=== PATIENT | female | born 1965 | race Caucasian/White ===

== ENCOUNTER 2017-02-22 12:19 | Emergency (ER) | payer BC, OTHER ==
[~2017-02-22] VITALS: Ht 162.6 cm; Wt 49.9 kg
[2017-02-22] MEDS ORDERED: METH-33 PO (12:38)
[2017-02-22] MEDS ORDERED: TRAZ-144 PO (12:38)
[2017-02-22] MEDS ORDERED: GABA-534 PO (12:38)
[2017-02-22] MEDS ORDERED: CLOM50TA PO (12:38)
[2017-02-22] MEDS ORDERED: HYDR25CA PO (12:38)
[2017-02-22] MEDS ORDERED: CLON0.1T PO (12:38)
[2017-02-22] MEDS ORDERED: PRAZ2CAP2 PO (12:38)
[2017-02-22] MEDS ORDERED: PROC-11 PO (12:38)
[2017-02-22] MEDS ORDERED: BUSP10TA3 PO (12:38)
[2017-02-22] MEDS ORDERED: ARIP2TAB3 PO (12:38)
[2017-02-22] MEDS ORDERED: SUMA100T16 PO (12:38)
[2017-02-22] MEDS ORDERED: ZALE10CA28 PO (12:38)
[2017-02-22] MEDS ORDERED: CETI10CA PO (12:38)
[2017-02-22] MEDS ORDERED: NORE-76 PO (12:39)
--- NOTE | 2017-02-22 13:00 | NUR ---
hospital sandwich and juice provided per pt request.
[2017-02-22 13:03] LABS: *BILIRUBIN,URIN NEGATIVE (NEGATIVE); *BLOOD, URINE 1+ (NEGATIVE); *CLARITY,URINE CLEAR (CLEAR); *COLOR,URINE YELLOW (YELLOW); *KETONES,URINE NEGATIVE (NEGATIVE); *PROTEIN,URINE 1+ (NEGATIVE); *UROBILINOGEN,URINE 0.2 E.U./dl (NORMAL); LEUKOCYTE ESTERASE ,URINE NEGATIVE (NEGATIVE); NITRITE, URINE NEGATIVE (NEGATIVE); PH,URINE 5.5 (5.0-8.0); UGLUCOSE NEGATIVE (NEGATIVE)
[2017-02-22 13:06] LABS: *URINE HCG, QUAL NEGATIVE (NEGATIVE)
[2017-02-22 13:08] LABS: BASOPHILS % (AUTO) 0.3 % (0.0-2.0); EOSINOPHILS # (AUTO) 0.1 K/uL (0.0-0.7); EOSINOPHILS % (AUTO) 0.6 % (0.0-7.0); HEMATOCRIT 37.2 % (37-47); LYMPHOCYTES # (AUTO) 2.4 K/UL (0.8-4.8); LYMPHOCYTES % (AUTO) 26.4 % (20.5-51.5); MEAN CORPUSCULAR HGB CONC 32 g/dL (32.0-37.0); MEAN CORPUSCULAR VOLUME 86.5 FL (81.0-99.0); MONOCYTES # (AUTO) 0.7 K/UL (0.1-1.30); NEUTROPHILS # (AUTO) 5.9 K/UL (1.8-8.9); NEUTROPHILS % (AUTO) 64.7 % (38.5-71.5); PLATELET COUNT (AUTO) 301 K/UL (150-450); WHITE BLOOD COUNT (AUTO) 9.1 K/UL (4.0-11.2)
[2017-02-22 13:13] LABS: *AMPHETAMINE, URINE NEGATIVE (NEGATIVE); *BARBITURATE, URINE POSITIVE (NEGATIVE); *CANNABINOID, URINE POSITIVE (NEGATIVE); *COCCAINE, URINE NEGATIVE (NEGATIVE); *OPIATE, URINE NEGATIVE (NEGATIVE); *PHENCYCLIDINE SCREEN,URINE NEGATIVE (NEGATIVE)
[2017-02-22 13:16] LABS: CARBON DIOXIDE 28 mmol/L (21-32); CHLORIDE 103 mmol/L (98-107); CREATININE 0.8 mg/dL (0.6-1.3); GLUCOSE 101 mg/dL (74-106); POTASSIUM 3.4 mmol/L (3.5-5.1); UREA NITROGEN, BLOOD 8 mg/dL (7-18)
[2017-02-22 13:16] LABS: BACTERIA,URINE FEW /HPF (NONE SEEN); MUCUS,URINE MODERATE /LPF (0-FEW); SQUAMOUS EPITHELIAL CELL,UR FEW /HPF (NONE SEEN); WBC,URINE 0-3 /HPF (0-3)
[2017-02-22 13:21] LABS: ALANINE AMINOTRANSFERASE 16 U/L (14-59); ALKALINE PHOSPHATASE 54 U/L (50-136); ASPARTATE AMINOTRANSFERASE 10 U/L (15-37); BILIRUBIN,DIRECT < 0.1 mg/dL (0.0-0.2); BILIRUBIN,TOTAL 0.2 mg/dL (0.2-1.0); ETHANOL < 3 MG/DL (0-0); TOTAL PROTEIN, SERUM 7.3 g/dL (6.4-8.2)
[2017-02-22 13:22] LABS: ACETAMINOPHEN < 2.0 ug/mL (10-30)
--- NOTE | 2017-02-22 13:35 | NUR ---
Patient discharged to home in stable conditon. Written and verbal after care instructions given. Patient verbalizes understanding of instructions.pt walks in steady gait. pt with famiyl member. walked the pt to [facility] office.
[2017-02-22 13:36] VITALS: BP 109/65
== END 2017-02-22 13:38 | disposition home or self-care (01) ==
LOC: ER 12:19
DX: F13.20 Sedative, hypnotic or anxiolytic dependence, uncomplicated (principal); G43.909 Migraine, unspecified, not intractable, without status migrainosus; Z88.8 Allergy status to other drugs, medicaments and biological substances; Z91.018 Allergy to other foods
CPT/HCPCS: 36415; 80048; 80076; 80307; 81001; 84703; 85025; 99284; A4663; G0480 ×2; G0481

== ENCOUNTER 2021-05-05 19:03 | Emergency (ER) | payer BC, OTHER ==
[~2021-05-05] VITALS: Ht 162.6 cm; Wt 62.1 kg
[~2021-05-05 19:03] MED LIST: ARIP2TAB3 PO; BUSP10TA3 PO; CETI10CA PO; CLOM50TA PO; CLON0.1T PO; GABA-534 PO; HYDR25CA PO; METH-33 PO; NORE-76 PO; PRAZ2CAP2 PO; PROC-11 PO; SUMA100T16 PO; TRAZ-182 PO; ZALE10CA28 PO
--- NOTE | 2021-05-05 19:09 | NUR ---
NO BEDS AVAILABLE IN THE ER. PLACED PATIENT BACK IN THE WAITING ROOM.
--- NOTE | 2021-05-05 19:50 | NUR ---
PATIENT PLACED IN ROOM 5A. DR CROCKETT INTO EVAL PATIENT.
[2021-05-05] MEDS ORDERED: CLON2TAB11 PO (19:59)
[2021-05-05] MEDS ORDERED: OLANZAPINE 10 MG VIAL IM ONE ×2 (20:00→20:08)
[2021-05-05] MEDS ORDERED: CLONAZEPAM 0.5 MG TABLET PO ONE (20:00)
[2021-05-05] MEDS ORDERED: CLONAZEPAM 1 MG TABLET ONE (20:07)
--- NOTE | 2021-05-05 20:08 | NUR ---
Patient discharged to home in stable condition. Stedy gait. Written and verbal after care instructions given. Patient verbalizes understanding of instructions. Stressed follow up or return to ER for worsening s/s. No SOB or labored breathing, A/O x4, picked up by .
[2021-05-05 20:16] VITALS: BP 116/72
== END 2021-05-05 20:11 | disposition home or self-care (01) ==
LOC: ER 19:03
DX: F41.9 Anxiety disorder, unspecified (principal); Z79.899 Other long term (current) drug therapy; Z88.1 Allergy status to other antibiotic agents; Z91.018 Allergy to other foods
CPT/HCPCS: A4663; J2358

== ENCOUNTER 2021-05-11 13:01 | Emergency (ER) | payer OTHER ==
[~2021-05-11] VITALS: Ht 162.6 cm; Wt 62.6 kg
[~2021-05-11 13:01] MED LIST changes: +CLON2TAB11 PO
[2021-05-11] MEDS ORDERED: LORAZEPAM 0.5 MG TABLET PO ONE (13:30)
[2021-05-11] MEDS ORDERED: HYDR-501 PO (13:31)
[2021-05-11] MEDS ORDERED: LORAZEPAM 1 MG TABLET ONE (13:50)
--- NOTE | 2021-05-11 13:58 | NUR ---
Gave pt RX and d/c instructions, pt verbalized understanding.
== END 2021-05-11 14:04 | disposition home or self-care (01) ==
LOC: ER 13:01
DX: F41.0 Panic disorder [episodic paroxysmal anxiety] (principal); F41.9 Anxiety disorder, unspecified; Z88.1 Allergy status to other antibiotic agents; Z91.018 Allergy to other foods
CPT/HCPCS: A4663

== ENCOUNTER 2021-05-11 19:55 | Emergency (ER) | payer OTHER ==
[~2021-05-11 19:55] MED LIST changes: +HYDR-501 PO
--- NOTE | 2021-05-11 21:00 | NUR ---
PATIENT WAS CALLED TO BE TRAIGED BUT WAS NOT PRESENT IN THE WAITING ROOM OR OUTSIDE OF ER.
--- NOTE | 2021-05-11 21:30 | NUR ---
PATIENT WAS CALLED TO BE TRAIGED BUT WAS NOT PRESENT IN THE WAITING ROOM OR OUTSIDE OF ER.
--- NOTE | 2021-05-11 22:00 | NUR ---
PATIENTG WAS CALLED TO BE TRIAGED BUT WAS NOT PRERSENT. PATIENT WAS NOT TRAIGED OR SEEN BY ERMD
== END 2021-05-11 22:00 | disposition left against medical advice (07) ==
LOC: ER 19:57
DX: Z53.21 Procedure and treatment not carried out due to patient leaving prior to being seen by health care provider (principal)

== ENCOUNTER 2021-10-28 10:10 | Emergency (ER) | payer OTHER ==
[~2021-10-28] VITALS: Ht 162.6 cm; Wt 63.5 kg
[2021-10-28] MEDS ORDERED: KETOROLAC TROMETHAMINE 15 MG INJ IVP ONE (10:30)
[2021-10-28] MEDS ORDERED: diphenhydrAMINE 50 MG/1 ML VIAL IV ONE (10:30)
[2021-10-28] MEDS ORDERED: IV NORMAL SALINE 1000 ML BAG IV ONE (10:30)
[2021-10-28] MEDS ORDERED: METOCLOPRAMIDE HCL 10 MG/2 ML VIAL IV ONE (10:30)
[2021-10-28] MEDS ORDERED: diphenhydrAMINE 50 MG/1 ML VIAL ONE (10:47)
[2021-10-28] MEDS ORDERED: METOCLOPRAMIDE HCL 10 MG/2 ML VIAL ONE (10:48)
[2021-10-28] MEDS ORDERED: KETOROLAC TROMETHAMINE 15 MG INJ ONE (10:49)
[2021-10-28] MEDS ORDERED: LORAZEPAM 2 MG/1 ML VIAL IV ONE (11:00)
[2021-10-28 11:05] LABS: HEMATOCRIT 39.1 % (31.2-41.9); MEAN CORPUSCULAR HEMOGLOBIN 27.4 uug (24.7-32.8); MEAN CORPUSCULAR VOLUME 83.1 fL (75.5-95.3); PLATELET COUNT (AUTO) 337 K/uL (179-408)
[2021-10-28 11:07] LABS: CREATININE 0.9 mg/dL (0.6-1.3); POTASSIUM 3.9 mmol/L (3.5-5.1)
[2021-10-28] MEDS ORDERED: LORAZEPAM 2 MG/1 ML VIAL ONE (11:07)
[2021-10-28] MEDS ORDERED: BUTA1CAP46 PO (12:31)
--- NOTE | 2021-10-28 12:42 | NUR ---
IV removed. Catheter intact and site benign. Pressure and 4x4 gauze applied to site. No bleeding noted.
[2021-10-28 12:44] VITALS: BP 112/70
--- NOTE | 2021-10-28 12:45 | NUR ---
Patient discharged to home in stable condition. Written and verbal after care instructions given. Patient verbalizes understanding of instructions. Stressed follow up or return to ER for worsening s/s.
== END 2021-10-28 12:45 | disposition home or self-care (01) ==
LOC: ER 10:10
DX: G43.909 Migraine, unspecified, not intractable, without status migrainosus (principal); F41.9 Anxiety disorder, unspecified; Z79.899 Other long term (current) drug therapy; R94.31 Abnormal electrocardiogram [ECG] [EKG]
CPT/HCPCS: 36415; 80048; 85025; 93005; 96361; 96374; 96375; 99284; J1200; J1885; J2060; J2765; J7040; A4663

== ENCOUNTER 2021-11-19 11:20 | Emergency (ER) | payer OTHER ==
[~2021-11-19] VITALS: Ht 162.6 cm; Wt 63.0 kg
[~2021-11-19 11:20] MED LIST changes: +BUTA1CAP46 PO
[2021-11-19] MEDS ORDERED: LORAZEPAM 2 MG/1 ML VIAL ONE (11:56)
[2021-11-19] MEDS ORDERED: LORAZEPAM 2 MG/1 ML VIAL IM ONE (12:00)
[2021-11-19] MEDS ORDERED: ONDANSETRON ODT 4 MG TAB.RAPDIS SL ONE (12:30)
[2021-11-19] MEDS ORDERED: LORAZEPAM 0.5 MG TABLET PO ONE (12:30)
[2021-11-19] MEDS ORDERED: ONDANSETRON ODT 4 MG TAB.RAPDIS ONE (12:42)
[2021-11-19] MEDS ORDERED: LORAZEPAM 1 MG TABLET ONE (12:42)
--- NOTE | 2021-11-19 13:00 | NUR ---
pt says feels better and is ready to go home.
[2021-11-19] MEDS ORDERED: ONDA8TAB13 PO (13:12)
--- NOTE | 2021-11-19 13:12 | NUR ---
Patient discharged to home in stable condition. Written and verbal after care instructions given. Patient verbalizes understanding of instructions. Stressed follow up or return to ER for worsening s/s.pt walks in steady gait. pt not driving.
[2021-11-19 14:02] VITALS: BP 126/68
== END 2021-11-19 14:03 | disposition home or self-care (01) ==
LOC: ER 11:21
DX: F41.9 Anxiety disorder, unspecified (principal); Z88.1 Allergy status to other antibiotic agents; Z91.018 Allergy to other foods; Z86.69 Personal history of other diseases of the nervous system and sense organs
CPT/HCPCS: 96372; 99283; J2060; A4663; Q0162

== ENCOUNTER 2021-12-03 11:55 | Emergency (ER) | payer OTHER ==
[~2021-12-03] VITALS: Ht 162.6 cm; Wt 62.6 kg
[~2021-12-03 11:55] MED LIST changes: +ONDA8TAB13 PO
[2021-12-03] MEDS ORDERED: LORAZEPAM 2 MG/1 ML VIAL ONE (12:13)
[2021-12-03] MEDS ORDERED: LORAZEPAM 2 MG/1 ML VIAL IV ONE (12:15)
[2021-12-03] MEDS ORDERED: LORAZEPAM 2 MG/1 ML VIAL IM ONE (12:15)
--- NOTE | 2021-12-03 12:20 | NUR ---
MD gave verbal order to administer Ativan IM, charted it against IV administration order, so IM order not charted against.
--- NOTE | 2021-12-03 13:10 | NUR ---
pt states she is feeling much better now.
--- NOTE | 2021-12-03 13:45 | NUR ---
Pt left prior to receiving d/c paperwork, will try to stop back for papers.
[2021-12-03] MEDS ORDERED: LORA2ORA5 PO (14:13)
[2021-12-03 15:11] VITALS: BP 132/78
[2021-12-03] MEDS ORDERED: MIDAZOLAM HCL 2 MG/2 ML VIAL IM ONE (15:15)
[2021-12-03] MEDS ORDERED: OLANZAPINE 10 MG VIAL IM ONE (15:15)
== END 2021-12-03 14:45 | disposition home or self-care (01) ==
LOC: ER 12:00
DX: F41.9 Anxiety disorder, unspecified (principal); F41.0 Panic disorder [episodic paroxysmal anxiety]
CPT/HCPCS: 96374; 99284; J2060; A4663

== ENCOUNTER 2021-12-21 18:20 | Emergency (ER) | payer OTHER ==
[~2021-12-21] VITALS: Ht 162.6 cm; Wt 62.6 kg
[~2021-12-21 18:20] MED LIST changes: +LORA2ORA5 PO
[2021-12-21] MEDS ORDERED: diphenhydrAMINE 50 MG/1 ML VIAL IV ONE (19:00)
[2021-12-21] MEDS ORDERED: KETOROLAC TROMETHAMINE 30 MG INJ IVP ONE (19:00)
[2021-12-21] MEDS ORDERED: METOCLOPRAMIDE HCL 10 MG/2 ML VIAL IV ONE (19:00)
[2021-12-21] MEDS ORDERED: IV NS 1000 ML 1,000 ML IV ONE (19:00)
[2021-12-21] MEDS ORDERED: diphenhydrAMINE 50 MG/1 ML VIAL ONE (19:07)
[2021-12-21] MEDS ORDERED: METOCLOPRAMIDE HCL 10 MG/2 ML VIAL ONE (19:07)
[2021-12-21] MEDS ORDERED: KETOROLAC TROMETHAMINE 30 MG INJ ONE (19:07)
--- NOTE | 2021-12-21 19:30 | NUR ---
Patient c/o anxiety and requesting for ativan. Dr Gamez informed
--- NOTE | 2021-12-21 19:30 | NUR ---
Patien's SO at bedside
--- NOTE | 2021-12-21 19:37 | NUR ---
patient is a/ox4, NAD noted. Patient is is able to walk to the restroom with steady gait
[2021-12-21] MEDS ORDERED: CODE1CAP24 GT (20:46)
[2021-12-21] MEDS ORDERED: LORA2TAB95 PO (20:46)
--- NOTE | 2021-12-21 20:51 | NUR ---
Patient discharged to home in stable condition. Written and verbal after care instructions given. Patient verbalizes understanding of instructions. Stressed follow up or return to ER for worsening s/s. Patient is a/ox4, NAD. Patient is able to walk with steady gait. Patient is accompanied by SO
[2021-12-21 21:20] VITALS: BP 125/78
== END 2021-12-21 20:51 | disposition home or self-care (01) ==
LOC: ER 18:22
DX: R51.9 Headache, unspecified (principal); F41.9 Anxiety disorder, unspecified; Z76.0 Encounter for issue of repeat prescription
CPT/HCPCS: 96361; 96374; 96375; 99284; J1200; J1885; J2765; J7040; A4663

== ENCOUNTER 2022-01-14 20:45 | Emergency (ER) | payer SELFPAY ==
[~2022-01-14 20:45] MED LIST changes: +CODE1CAP24 GT; +LORA2TAB95 PO
== END 2022-01-14 21:52 | disposition left against medical advice (07) ==
LOC: ER 20:45
DX: Z53.21 Procedure and treatment not carried out due to patient leaving prior to being seen by health care provider (principal)

== ENCOUNTER 2022-01-17 14:50 | Emergency (ER) | payer OTHER ==
[~2022-01-17] VITALS: Ht 162.6 cm; Wt 62.6 kg
[2022-01-17] MEDS ORDERED: LORAZEPAM 1 MG TABLET ONE (15:45)
[2022-01-17] MEDS ORDERED: LORAZEPAM 0.5 MG TABLET PO ONE ×2 (15:45)
[2022-01-17] MEDS ORDERED: LORA2TAB95 PO (16:23)
== END 2022-01-17 17:26 | disposition home or self-care (01) ==
LOC: ER 14:50
DX: F41.9 Anxiety disorder, unspecified (principal)
CPT/HCPCS: A4663

== ENCOUNTER 2022-01-26 11:27 | Emergency (ER) | payer OTHER ==
[~2022-01-26] VITALS: Ht 162.6 cm; Wt 61.7 kg
[2022-01-26] MEDS ORDERED: SERT100T PO (12:02)
[2022-01-26] MEDS ORDERED: OLAN20TA3 PO (12:02)
[2022-01-26] MEDS ORDERED: LORA2TAB95 PO (12:02)
[2022-01-26] MEDS ORDERED: LORAZEPAM 0.5 MG TABLET PO ONE (12:30)
[2022-01-26] MEDS ORDERED: LORAZEPAM 1 MG TABLET ONE (12:36)
--- NOTE | 2022-01-26 12:43 | NUR ---
Gave pt d/c instructions, pt verbalized understanding.
== END 2022-01-26 12:45 | disposition home or self-care (01) ==
LOC: ER 11:27
DX: F41.9 Anxiety disorder, unspecified (principal); F17.290 Nicotine dependence, other tobacco product, uncomplicated; Z88.1 Allergy status to other antibiotic agents; Z91.018 Allergy to other foods; Z91.048 Other nonmedicinal substance allergy status
CPT/HCPCS: A4663

== ENCOUNTER 2022-01-30 14:57 | Emergency (ER) | payer OTHER ==
[~2022-01-30] VITALS: Ht 162.6 cm; Wt 61.7 kg
[~2022-01-30 14:57] MED LIST changes: +OLAN20TA3 PO; +SERT100T PO
--- NOTE | 2022-01-30 15:00 | NUR ---
Patient seen by
[2022-01-30] MEDS ORDERED: LORAZEPAM 0.5 MG TABLET PO ONE (16:00)
[2022-01-30] MEDS ORDERED: LORAZEPAM 1 MG TABLET ONE (16:24)
[2022-01-30] MEDS ORDERED: ONDANSETRON ODT 4 MG TAB.RAPDIS SL ONE (17:30)
[2022-01-30] MEDS ORDERED: ONDANSETRON ODT 4 MG TAB.RAPDIS ONE (17:30)
[2022-01-30] MEDS ORDERED: ONDA4TAB5 PO (17:49)
[2022-01-30] MEDS ORDERED: CLON1TAB12 PO (17:50)
--- NOTE | 2022-01-30 17:58 | NUR ---
DCD instructions given to pt. who verbalized undertanding. Patient left room ambulatory AAOX4. vitals stable anxiety better controlledd.
== END 2022-01-30 18:00 | disposition home or self-care (01) ==
LOC: ER 14:58
DX: F41.9 Anxiety disorder, unspecified (principal); Z76.0 Encounter for issue of repeat prescription; I95.9 Hypotension, unspecified
CPT/HCPCS: 71045; 93005; A4663; Q0162

== ENCOUNTER 2022-03-03 15:56 | Emergency (ER) | payer OTHER ==
[~2022-03-03] VITALS: Ht 162.6 cm; Wt 61.7 kg
[~2022-03-03 15:56] MED LIST changes: +CLON1TAB12 PO; +ONDA4TAB5 PO
[2022-03-03] MEDS ORDERED: KETOROLAC TROMETHAMINE 30 MG INJ ONE (16:09)
[2022-03-03] MEDS ORDERED: KETOROLAC TROMETHAMINE 30 MG INJ IM ONE (16:15)
[2022-03-03] MEDS ORDERED: CODE1CAP24 PO (16:16)
--- NOTE | 2022-03-03 16:49 | NUR ---
PT SEEN AND EVALUATED BY DR REZA. MEDICATED PER MD ORDER.
--- NOTE | 2022-03-03 18:09 | NUR ---
PT FEELING BETTER AT THIS TIME. DISCHARGED IN STABLE CONDITION.
[2022-03-03 18:11] VITALS: BP 104/68
== END 2022-03-03 18:11 | disposition home or self-care (01) ==
LOC: ER 15:56
DX: G43.909 Migraine, unspecified, not intractable, without status migrainosus (principal); F41.9 Anxiety disorder, unspecified; F17.200 Nicotine dependence, unspecified, uncomplicated; Z76.0 Encounter for issue of repeat prescription; Z88.1 Allergy status to other antibiotic agents; Z91.018 Allergy to other foods; Z79.899 Other long term (current) drug therapy
CPT/HCPCS: 99283; 96372; J1885; A4663

== ENCOUNTER 2022-06-19 13:02 | Emergency (ER) | END 2022-06-19 14:14 | disposition home or self-care (01) | DX: G43.909 Migraine, unspecified, not intractable, without status migrainosus (principal); F41.9 Anxiety disorder, unspecified; Z76.0 Encounter for issue of repeat prescription; F17.290 Nicotine dependence, other tobacco product, uncomplicated; Z88.1 Allergy status to other antibiotic agents; Z91.018 Allergy to other foods | CPT/HCPCS: 99284; 96372 ×2; J1885; J2765 ==

== ENCOUNTER 2022-06-23 14:59 | Emergency (ER) | payer OTHER ==
[~2022-06-23] VITALS: Ht 162.6 cm; Wt 55.3 kg
[~2022-06-23 14:59] MED LIST changes: +CODE1CAP24 PO
--- NOTE | 2022-06-23 15:15 | NUR ---
Pt ambulatory to room 4A, pt states she has history of anxiety and takes Klonopin but ran out. States she has an appointment with her psychiatrist.
[2022-06-23] MEDS ORDERED: CLONAZEPAM 1 MG TABLET ONE (15:28)
[2022-06-23] MEDS ORDERED: CLONAZEPAM 0.5 MG TABLET PO ONE (15:30)
[2022-06-23] MEDS ORDERED: CLON2TAB11 PO ×2 (16:37→16:45)
--- NOTE | 2022-06-23 16:40 | NUR ---
Pt states feeling better and her panic attack decreased.
[2022-06-23 16:46] VITALS: BP 101/60
== END 2022-06-23 16:48 | disposition home or self-care (01) ==
LOC: ER 14:59
DX: F41.0 Panic disorder [episodic paroxysmal anxiety] (principal); F41.1 Generalized anxiety disorder; Z88.1 Allergy status to other antibiotic agents; Z91.018 Allergy to other foods; Z91.048 Other nonmedicinal substance allergy status
CPT/HCPCS: A4663

== ENCOUNTER 2022-06-28 15:44 | Emergency (ER) | payer SELFPAY | END 2022-06-28 16:17 | disposition left against medical advice (07) | LOC: ER 15:44 | DX: Z53.21 Procedure and treatment not carried out due to patient leaving prior to being seen by health care provider (principal) ==

== ENCOUNTER 2022-09-03 13:21 | Emergency (ER) | payer OTHER ==
[~2022-09-03] VITALS: Ht 162.6 cm; Wt 53.5 kg
--- NOTE | 2022-09-03 13:35 | NUR ---
PT IS IN ROOM #1A. DR QUINTERO EVALUATED THE PT.
[2022-09-03] MEDS ORDERED: LORAZEPAM 2 MG/1 ML VIAL ONE ×3 (13:44→15:07)
[2022-09-03] MEDS ORDERED: METOCLOPRAMIDE HCL 10 MG/2 ML VIAL ONE (13:45)
[2022-09-03] MEDS ORDERED: KETOROLAC TROMETHAMINE 30 MG INJ ONE (13:45)
[2022-09-03] MEDS ORDERED: METOCLOPRAMIDE HCL 10 MG/2 ML VIAL IV ONE (13:45)
[2022-09-03] MEDS ORDERED: IV NORMAL SALINE 1000 ML BAG IV ONE ×2 (13:45→14:45)
[2022-09-03] MEDS ORDERED: KETOROLAC TROMETHAMINE 30 MG INJ IVP ONE (13:45)
[2022-09-03] MEDS ORDERED: LORAZEPAM 2 MG/1 ML VIAL IV ONE ×3 (13:45→15:00)
[2022-09-03 13:58] LABS: HEMATOCRIT 42.8 % (31.2-41.9); MEAN CORPUSCULAR HEMOGLOBIN 27.4 uug (24.7-32.8); MEAN CORPUSCULAR VOLUME 85.3 fL (75.5-95.3); PLATELET COUNT (AUTO) 349 K/uL (179-408)
[2022-09-03 14:20] LABS: BILIRUBIN,DIRECT 0.1 mg/dL (0.0-0.2); BILIRUBIN,TOTAL 0.4 mg/dL (0.2-1.0); CREATININE 1.1 mg/dL (0.6-1.3); POTASSIUM 3.9 mmol/L (3.5-5.1); TOTAL PROTEIN, SERUM 8.4 g/dL (6.4-8.2)
[2022-09-03] MEDS ORDERED: BUTALB/ACETAMINOPHEN/CAFFEINE CAPSULE PO ONE (15:00)
[2022-09-03] MEDS ORDERED: BUTALB/ACETAMINOPHEN/CAFFEINE CAPSULE ONE (15:08)
[2022-09-03] MEDS ORDERED: CODE1CAP24 GT (16:11)
--- NOTE | 2022-09-03 16:41 | NUR ---
PT WAS D/C'd TO HOME. D/C INSTRUCTIONS GIVEN TO THE PT BY DR QUINTERO.
[2022-09-03 16:45] VITALS: BP 128/69
== END 2022-09-03 16:46 | disposition home or self-care (01) ==
LOC: ER 13:21
DX: R19.7 Diarrhea, unspecified (principal); R51.9 Headache, unspecified; F41.9 Anxiety disorder, unspecified; Z88.1 Allergy status to other antibiotic agents; Z91.018 Allergy to other foods; Z91.048 Other nonmedicinal substance allergy status; F17.290 Nicotine dependence, other tobacco product, uncomplicated
CPT/HCPCS: 99284; 96374; 96361; 96375; 80076; 80048; 85025; 36415; 96376; J1885; J2060 ×3; J2765; J7040; A4663

== ENCOUNTER 2022-09-13 11:03 | Emergency (ER) | payer OTHER ==
[~2022-09-13] VITALS: Ht 162.6 cm; Wt 53.5 kg
[2022-09-13] MEDS ORDERED: ONDANSETRON 4 MG/2 ML VIAL ONE (11:26)
[2022-09-13] MEDS ORDERED: DICYCLOMINE HCL 20 MG TABLET ONE (11:26)
[2022-09-13] MEDS ORDERED: MORPHINE SULFATE 4 MG/1 ML DISP.SYRIN ONE (11:26)
[2022-09-13] MEDS ORDERED: ONDANSETRON 4 MG/2 ML VIAL IV ONE (11:30)
[2022-09-13] MEDS ORDERED: IV NORMAL SALINE 1000 ML BAG IV ONE (11:30)
[2022-09-13] MEDS ORDERED: MORPHINE SULFATE 2 MG/1 ML DISP.SYRIN IV ONE (11:30)
[2022-09-13] MEDS ORDERED: DICYCLOMINE HCL 20 MG TABLET PO SCH (11:30)
[2022-09-13 11:38] LABS: HEMATOCRIT 38.1 % (31.2-41.9); MEAN CORPUSCULAR HEMOGLOBIN 27.7 uug (24.7-32.8); MEAN CORPUSCULAR VOLUME 85.8 fL (75.5-95.3); PLATELET COUNT (AUTO) 326 K/uL (179-408)
[2022-09-13 11:55] LABS: CREATININE 0.9 mg/dL (0.6-1.3); POTASSIUM 3.2 mmol/L (3.5-5.1)
--- NOTE | 2022-09-13 12:00 | NUR ---
Back from CT, appears more comfortable, states pain and nausea improved.
[2022-09-13 12:06] LABS: BILIRUBIN,DIRECT 0.1 mg/dL (0.0-0.2); BILIRUBIN,TOTAL 0.3 mg/dL (0.2-1.0); TOTAL PROTEIN, SERUM 7.5 g/dL (6.4-8.2)
[2022-09-13 12:31] LABS: *BILIRUBIN,URIN NEGATIVE (NEGATIVE); *BLOOD, URINE TRACE (NEGATIVE); *CLARITY,URINE CLEAR (CLEAR); *COLOR,URINE LIGHT YELLOW (YELLOW); *KETONES,URINE NEGATIVE (NEGATIVE); *UROBILINOGEN,URINE 0.2 E.U./dl (NORMAL); LEUKOCYTE ESTERASE ,URINE NEGATIVE (NEGATIVE); NITRITE, URINE NEGATIVE (NEGATIVE); PH,URINE 6.5 (5.0-8.0); UGLUCOSE NEGATIVE (NEGATIVE)
[2022-09-13] MEDS ORDERED: DICY20TA11 PO (12:43)
[2022-09-13] MEDS ORDERED: ONDA4TAB5 PO (12:43)
[2022-09-13] MEDS ORDERED: ONDA4TAB11 PO (12:48)
[2022-09-13 12:51] VITALS: BP 141/89
--- NOTE | 2022-09-13 12:51 | NUR ---
Patient discharged to home in stable condition with family. Written and verbal after care instructions given. Patient verbalizes understanding of instructions. Stressed follow up or return to ER for worsening s/s.
--- NOTE | 2022-09-13 12:51 | NUR ---
IV removed. Catheter intact and site benign. Pressure and 4x4 gauze applied to site. No bleeding noted.
[2022-09-13 18:29] LABS: RBC,URINE 0-3 /HPF (0-3); WBC,URINE 0-3 /HPF (0-3)
== END 2022-09-13 12:52 | disposition home or self-care (01) ==
LOC: ER 11:03
DX: R10.9 Unspecified abdominal pain (principal); R19.7 Diarrhea, unspecified; R11.0 Nausea; G43.909 Migraine, unspecified, not intractable, without status migrainosus; F17.210 Nicotine dependence, cigarettes, uncomplicated; Z79.899 Other long term (current) drug therapy; Z88.1 Allergy status to other antibiotic agents; Z88.8 Allergy status to other drugs, medicaments and biological substances; Z91.018 Allergy to other foods
CPT/HCPCS: 99285; 74176; 96374; 96361; 96375; 80076; 80048; 81001; 83690; 85025; 36415; J2405; J2270; J7040; A4663

== ENCOUNTER 2022-09-15 10:52 | Emergency (ER) | payer OTHER ==
[~2022-09-15] VITALS: Ht 162.6 cm; Wt 53.5 kg
[~2022-09-15 10:52] MED LIST changes: +DICY20TA11 PO; +ONDA4TAB11 PO
[2022-09-15] MEDS ORDERED: PROCHLORPERAZINE EDISYLATE 10 MG/2 ML VIAL ONE (11:20)
[2022-09-15] MEDS ORDERED: KETOROLAC TROMETHAMINE 30 MG INJ ONE (11:20)
[2022-09-15] MEDS ORDERED: FAMOTIDINE. 20 MG/2 ML VIAL IV ONE ×2 (11:20→11:30)
[2022-09-15 11:21] LABS: *BILIRUBIN,URIN NEGATIVE (NEGATIVE); *CLARITY,URINE CLEAR (CLEAR); *COLOR,URINE YELLOW (YELLOW); *KETONES,URINE NEGATIVE (NEGATIVE); *UROBILINOGEN,URINE 0.2 E.U./dl (NORMAL); HEMATOCRIT 39.8 % (31.2-41.9); LEUKOCYTE ESTERASE ,URINE NEGATIVE (NEGATIVE); MEAN CORPUSCULAR HEMOGLOBIN 27.9 uug (24.7-32.8); MEAN CORPUSCULAR VOLUME 85.9 fL (75.5-95.3); NITRITE, URINE POSITIVE (NEGATIVE); PLATELET COUNT (AUTO) 357 K/uL (179-408); UGLUCOSE TRACE (NEGATIVE)
[2022-09-15] MEDS ORDERED: LORAZEPAM 2 MG/1 ML VIAL ONE ×2 (11:21→13:35)
[2022-09-15] MEDS ORDERED: PROCHLORPERAZINE EDISYLATE 10 MG/2 ML VIAL IV ONE (11:30)
[2022-09-15] MEDS ORDERED: IV NORMAL SALINE 1000 ML BAG IV ONE (11:30)
[2022-09-15] MEDS ORDERED: KETOROLAC TROMETHAMINE 15 MG INJ IVP ONE (11:30)
[2022-09-15] MEDS ORDERED: LORAZEPAM 2 MG/1 ML VIAL IV ONE ×2 (11:30→13:45)
[2022-09-15 11:32] LABS: POTASSIUM 3.4 mmol/L (3.5-5.1)
[2022-09-15 11:33] LABS: *BLOOD, URINE TRACE (NEGATIVE)
[2022-09-15] MEDS ORDERED: METOCLOPRAMIDE HCL 10 MG/2 ML VIAL ONE (11:42)
[2022-09-15 11:45] LABS: BILIRUBIN,DIRECT 0.1 mg/dL (0.0-0.2); BILIRUBIN,TOTAL 0.3 mg/dL (0.2-1.0); TOTAL PROTEIN, SERUM 8.7 g/dL (6.4-8.2)
[2022-09-15] MEDS ORDERED: METOCLOPRAMIDE HCL 10 MG/2 ML VIAL IV ONE (11:45)
[2022-09-15] MEDS ORDERED: CEFTRIAXONE 1 G in IV DEXTROSE 5% 50 ML IV ONE (12:00)
[2022-09-15] MEDS ORDERED: MORPHINE SULFATE 4 MG/1 ML DISP.SYRIN IV ONE (12:00)
[2022-09-15] MEDS ORDERED: MORPHINE SULFATE 4 MG/1 ML DISP.SYRIN ONE (12:00)
[2022-09-15] MEDS ORDERED: CEFTRIAXONE /D5W 50ML IVPB **ER PYXIS IV ONE (12:02)
[2022-09-15] MEDS ORDERED: IV NORMAL SALINE 250 ML IV ONE (12:24)
[2022-09-15] MEDS ORDERED: SWABABLE VALVE TRANSFER SET EA MC ONE (12:24)
[2022-09-15] MEDS ORDERED: IOHEXOL 300MG/ML 100 ML INFUS..BTL ONE (12:24)
--- NOTE | 2022-09-15 12:54 | NUR ---
Patient taken for CT scan.
[2022-09-15 13:24] LABS: BACTERIA,URINE FEW /HPF (NONE SEEN); RBC,URINE 0-3 /HPF (0-3); SQUAMOUS EPITHELIAL CELL,UR FEW /HPF (NONE SEEN); WBC,URINE NONE SEEN /HPF (0-3)
--- NOTE | 2022-09-15 13:35 | NUR ---
Patient states she feels fidgety. Patient requesting more anxiety medication. MD notifiefd.
--- NOTE | 2022-09-15 14:38 | NUR ---
Patient discharged to home in stable condition. Written and verbal after care instructions given. Patient verbalizes understanding of instructions. IV removed. Stressed follow up or return to ER for worsening s/s.
[2022-09-15 14:39] VITALS: BP 127/92
== END 2022-09-15 14:40 | disposition home or self-care (01) ==
LOC: ER 10:52
DX: R10.30 Lower abdominal pain, unspecified (principal); F41.8 Other specified anxiety disorders; R19.7 Diarrhea, unspecified; R11.10 Vomiting, unspecified; G43.909 Migraine, unspecified, not intractable, without status migrainosus; F17.210 Nicotine dependence, cigarettes, uncomplicated; Z88.1 Allergy status to other antibiotic agents; Z91.018 Allergy to other foods; Z88.8 Allergy status to other drugs, medicaments and biological substances; Z79.2 Long term (current) use of antibiotics; Z79.899 Other long term (current) drug therapy
CPT/HCPCS: 99285; 74177; 96375; 96365; 96361; 80076; 80048; 81001; 83690; 85025; 36415; 96376; 87040; J0696; J3490; J1885; J2060 ×2; J2765; Q9967; J0780; J2270; J7040; A4663

== ENCOUNTER 2022-09-20 16:01 | Emergency (ER) | payer OTHER ==
[~2022-09-20] VITALS: Ht 162.6 cm; Wt 53.5 kg
[2022-09-20] MEDS ORDERED: LORAZEPAM 0.5 MG TABLET PO ONE (16:45)
[2022-09-20] MEDS ORDERED: LORAZEPAM 0.5 MG TABLET ONE (16:46)
[2022-09-20 17:10] VITALS: BP 125/44
== END 2022-09-20 17:11 | disposition home or self-care (01) ==
LOC: ER 16:01
DX: F41.8 Other specified anxiety disorders (principal); G43.909 Migraine, unspecified, not intractable, without status migrainosus; F17.210 Nicotine dependence, cigarettes, uncomplicated; Z79.899 Other long term (current) drug therapy; Z88.1 Allergy status to other antibiotic agents; Z88.8 Allergy status to other drugs, medicaments and biological substances; Z91.018 Allergy to other foods
CPT/HCPCS: A4663

== ENCOUNTER 2022-10-04 12:06 | Emergency (ER) | payer OTHER ==
[~2022-10-04] VITALS: Ht 157.5 cm; Wt 51.7 kg
--- NOTE | 2022-10-04 12:17 | NUR ---
seen and examined by MD Kaur
[2022-10-04] MEDS ORDERED: IBUP-1955 PO (12:21)
[2022-10-04 12:24] VITALS: BP 123/80
== END 2022-10-04 12:25 | disposition home or self-care (01) ==
LOC: ER 12:06
DX: M54.9 Dorsalgia, unspecified (principal); G43.909 Migraine, unspecified, not intractable, without status migrainosus; F17.210 Nicotine dependence, cigarettes, uncomplicated; Z88.1 Allergy status to other antibiotic agents; Z88.8 Allergy status to other drugs, medicaments and biological substances; Z91.018 Allergy to other foods; Z79.1 Long term (current) use of non-steroidal anti-inflammatories (NSAID); Z79.2 Long term (current) use of antibiotics; Z79.899 Other long term (current) drug therapy
CPT/HCPCS: A4663

== ENCOUNTER 2022-10-08 11:54 | Emergency (ER) | payer OTHER ==
[~2022-10-08] VITALS: Ht 162.6 cm; Wt 52.6 kg
[~2022-10-08 11:54] MED LIST changes: +IBUP-1955 PO
--- NOTE | 2022-10-08 12:08 | NUR ---
Patient is AOx4 and wanting a prescription for REGLAN for her chronic nausea. NAD. Patient is calm and breathing easily, denies abdominal pains@this time.
--- NOTE | 2022-10-08 12:18 | NUR ---
MD@bedside, medical screening exam in progress
[2022-10-08] MEDS ORDERED: METOCLOPRAMIDE HCL 10 MG/2 ML VIAL ONE (12:24)
[2022-10-08] MEDS ORDERED: METOCLOPRAMIDE HCL 10 MG/2 ML VIAL IM ONE (12:30)
--- NOTE | 2022-10-08 12:37 | NUR ---
Patient discharged to home by Dr Pastrana in stable condition wit brisk steady gait. Written and verbal after care instructions given. Patient verbalized understanding and compliance of instructions. Stressed follow up with primary doctor andf GI specialist or return to ER for worsening s/s.
[2022-10-08 12:40] VITALS: BP 116/70
== END 2022-10-08 12:37 | disposition home or self-care (01) ==
LOC: ER 11:54
DX: R11.0 Nausea (principal); G43.909 Migraine, unspecified, not intractable, without status migrainosus; F17.210 Nicotine dependence, cigarettes, uncomplicated; Z88.1 Allergy status to other antibiotic agents; Z88.8 Allergy status to other drugs, medicaments and biological substances; Z91.018 Allergy to other foods; Z79.1 Long term (current) use of non-steroidal anti-inflammatories (NSAID); Z79.899 Other long term (current) drug therapy
CPT/HCPCS: 99283; 96372; J2765; A4663

== ENCOUNTER 2022-10-11 15:09 | Emergency (ER) | payer OTHER ==
[~2022-10-11] VITALS: Ht 162.6 cm; Wt 52.6 kg
--- NOTE | 2022-10-11 15:32 | NUR ---
seen and examined by
[2022-10-11] MEDS ORDERED: KETOROLAC TROMETHAMINE 15 MG INJ IM ONE (15:45)
[2022-10-11] MEDS ORDERED: LORAZEPAM 0.5 MG TABLET PO ONE (15:45)
[2022-10-11] MEDS ORDERED: KETOROLAC TROMETHAMINE 15 MG INJ ONE (15:59)
[2022-10-11] MEDS ORDERED: LORAZEPAM 1 MG TABLET ONE (16:00)
[2022-10-11 16:13] VITALS: BP 122/78
== END 2022-10-11 16:14 | disposition home or self-care (01) ==
LOC: ER 15:09
DX: F41.9 Anxiety disorder, unspecified (principal); R19.7 Diarrhea, unspecified; G43.909 Migraine, unspecified, not intractable, without status migrainosus; F17.210 Nicotine dependence, cigarettes, uncomplicated; Z88.1 Allergy status to other antibiotic agents; Z88.8 Allergy status to other drugs, medicaments and biological substances; Z91.048 Other nonmedicinal substance allergy status; Z79.899 Other long term (current) drug therapy; Z79.1 Long term (current) use of non-steroidal anti-inflammatories (NSAID)
CPT/HCPCS: A4663; J1885

== ENCOUNTER 2022-10-12 14:46 | Emergency (ER) | payer OTHER ==
[~2022-10-12] VITALS: Ht 154.9 cm; Wt 45.4 kg
--- NOTE | 2022-10-12 16:36 | NUR ---
Dr Gamez seen and examined the pt.
[2022-10-12] MEDS ORDERED: ONDANSETRON ODT 4 MG TAB.RAPDIS ONE (16:41)
[2022-10-12] MEDS ORDERED: ONDANSETRON ODT 4 MG TAB.RAPDIS SL ONE (16:45)
[2022-10-12 16:47] VITALS: BP 112/60
== END 2022-10-12 16:48 | disposition home or self-care (01) ==
LOC: ER 14:46
DX: F41.9 Anxiety disorder, unspecified (principal); G43.909 Migraine, unspecified, not intractable, without status migrainosus; F17.210 Nicotine dependence, cigarettes, uncomplicated; Z88.1 Allergy status to other antibiotic agents; Z88.8 Allergy status to other drugs, medicaments and biological substances; Z91.018 Allergy to other foods; Z79.1 Long term (current) use of non-steroidal anti-inflammatories (NSAID); Z79.2 Long term (current) use of antibiotics; Z79.899 Other long term (current) drug therapy
CPT/HCPCS: A4663; Q0162

== ENCOUNTER 2022-10-31 10:31 | Emergency (ER) | payer OTHER ==
[~2022-10-31] VITALS: Ht 154.9 cm; Wt 45.4 kg
[2022-10-31] MEDS ORDERED: diphenhydrAMINE 50 MG/1 ML VIAL IV ONE (10:45)
[2022-10-31] MEDS ORDERED: METOCLOPRAMIDE HCL 10 MG/2 ML VIAL IV ONE (10:45)
[2022-10-31] MEDS ORDERED: IV NORMAL SALINE 1000 ML BAG IV ONE (10:45)
[2022-10-31] MEDS ORDERED: KETOROLAC TROMETHAMINE 15 MG INJ IVP ONE (10:45)
[2022-10-31] MEDS ORDERED: diphenhydrAMINE 25 MG/10 ML UDC ONE (11:01)
[2022-10-31] MEDS ORDERED: diphenhydrAMINE 50 MG/1 ML VIAL ONE (11:02)
[2022-10-31] MEDS ORDERED: METOCLOPRAMIDE HCL 10 MG/2 ML VIAL ONE (11:03)
[2022-10-31] MEDS ORDERED: KETOROLAC TROMETHAMINE 15 MG INJ ONE (11:03)
[2022-10-31] MEDS ORDERED: METO-295 PO (11:34)
[2022-10-31] MEDS ORDERED: DICY10CA13 PO (11:34)
== END 2022-10-31 12:17 | disposition home or self-care (01) ==
LOC: ER 10:31
DX: R19.7 Diarrhea, unspecified (principal); R10.9 Unspecified abdominal pain; F41.9 Anxiety disorder, unspecified; G43.909 Migraine, unspecified, not intractable, without status migrainosus; F17.210 Nicotine dependence, cigarettes, uncomplicated; Z88.1 Allergy status to other antibiotic agents; Z88.8 Allergy status to other drugs, medicaments and biological substances; Z91.018 Allergy to other foods; Z79.1 Long term (current) use of non-steroidal anti-inflammatories (NSAID); Z79.899 Other long term (current) drug therapy
CPT/HCPCS: 99284; 96374; 96375; 96361; Q0163; J1200; J1885; J2765; J7040; A4663

== ENCOUNTER → 2022-12-29 | Emergency (ER) | payer OTHER ==
[~2022-12-29] VITALS: Ht 154.9 cm; Wt 45.4 kg
[~2022-12-29] MED LIST changes: +DICY10CA13 PO; +IOHEXOL 300MG/ML 100 ML INFUS..BTL ONE; +IV NORMAL SALINE 250 ML IV ONE; +IV NORMAL SALINE 500 ML BAG IV ONE; +KETOROLAC TROMETHAMINE 15 MG INJ IVP ONE; +KETOROLAC TROMETHAMINE 15 MG INJ ONE; +LACTULOSE 20 G/30 ML LIQUID UDC ONE; +LACTULOSE 20 G/30 ML LIQUID UDC PO ONE; +METO-295 PO; +NICOTINE POLACRILEX 4 MG GUM-PK OF TEN BC PRN; +ONDANSETRON 4 MG/2 ML VIAL IV ONE; +ONDANSETRON 4 MG/2 ML VIAL ONE; +SWABABLE VALVE TRANSFER SET EA MC ONE
--- NOTE | 2022-12-29 16:05 | NUR ---
Dr Cai at the bedside for MSE.
[2022-12-29 16:26] LABS: HEMATOCRIT 39.7 % (31.2-41.9); MEAN CORPUSCULAR HEMOGLOBIN 27.3 uug (24.7-32.8); MEAN CORPUSCULAR VOLUME 84.7 fL (75.5-95.3); PLATELET COUNT (AUTO) 321 K/uL (179-408)
[2022-12-29 16:36] LABS: *BILIRUBIN,URIN NEGATIVE (NEGATIVE); *BLOOD, URINE TRACE (NEGATIVE); *CLARITY,URINE CLEAR (CLEAR); *COLOR,URINE LIGHT YELLOW (YELLOW); *KETONES,URINE NEGATIVE (NEGATIVE); *UROBILINOGEN,URINE 0.2 E.U./dl (NORMAL); LEUKOCYTE ESTERASE ,URINE NEGATIVE (NEGATIVE); NITRITE, URINE NEGATIVE (NEGATIVE); PH,URINE 7.5 (5.0-8.0); UGLUCOSE NEGATIVE (NEGATIVE)
[2022-12-29 16:47] LABS: *AMPHETAMINE, URINE NEGATIVE (NEGATIVE); *CANNABINOID, URINE NEGATIVE (NEGATIVE); *COCCAINE, URINE NEGATIVE (NEGATIVE); *PHENCYCLIDINE SCREEN,URINE NEGATIVE (NEGATIVE)
[2022-12-29 16:51] LABS: BILIRUBIN,TOTAL 0.2 mg/dL (0.2-1.0); CREATININE 0.8 mg/dL (0.6-1.3); MAGNESIUM 2.3 mg/dL (1.8-2.4); PHOSPHOROUS 2.4 mg/dL (2.5-4.9); POTASSIUM 3.4 mmol/L (3.5-5.1); TOTAL PROTEIN, SERUM 8.3 g/dL (6.4-8.2)
[2022-12-29 16:52] LABS: BACTERIA,URINE NONE SEEN /HPF (NONE SEEN); RBC,URINE 0-3 /HPF (0-3); SQUAMOUS EPITHELIAL CELL,UR FEW /HPF (NONE SEEN); WBC,URINE NONE SEEN /HPF (0-3)
[2022-12-29 17:16] VITALS: O2SAT 99
--- NOTE | 2022-12-29 17:23 | NUR ---
Pt signed consent for IV contrasted Ct, placed in the chart.
--- NOTE | 2022-12-29 17:29 | NUR ---
Pt back from Ct, resting in bed.
[2022-12-29 18:17] LABS: ABG BASE EXCESS 0.7 mmol/L; ABG HCO3 18.1 mmol/L; ABG PCO2 15.2 mmHg (35.0-45.0); ABG PH 7.693 (7.350-7.450); ABG PO2 122.6 mmHg (75.0-100.0); ABG SITE RIGHT RADIAL; ABG TOTAL HEMOGLOBIN 12.7 G/dL (12.0-16.0); COHb 0.7 % (0.5-1.5); MetHb 0.3 % (0.0-1.5); O2Hb 97.7 % (94.0-97.0)
== END | disposition home or self-care (01) ==
LOC: ER 15:47
DX: R10.84 Generalized abdominal pain (principal); G43.909 Migraine, unspecified, not intractable, without status migrainosus; F17.210 Nicotine dependence, cigarettes, uncomplicated; Z88.1 Allergy status to other antibiotic agents; Z88.8 Allergy status to other drugs, medicaments and biological substances; Z91.018 Allergy to other foods; Z79.1 Long term (current) use of non-steroidal anti-inflammatories (NSAID); Z79.899 Other long term (current) drug therapy
CPT/HCPCS: 99285; 74177; 96374; 96361; 96375; 80053; 83735; 84100; 85025; 36415; 96376; 80307; 36600; 81001; J1885 ×2; J2405; Q9967; J7040; A4663

== ENCOUNTER 2023-01-22 12:29 | Emergency (ER) | payer OTHER ==
[~2023-01-22] VITALS: Ht 162.6 cm; Wt 53.5 kg
[~2023-01-22 12:29] MED LIST changes: -IOHEXOL 300MG/ML 100 ML INFUS..BTL ONE; -IV NORMAL SALINE 250 ML IV ONE; -IV NORMAL SALINE 500 ML BAG IV ONE; -KETOROLAC TROMETHAMINE 15 MG INJ IVP ONE; -KETOROLAC TROMETHAMINE 15 MG INJ ONE; -LACTULOSE 20 G/30 ML LIQUID UDC ONE; -LACTULOSE 20 G/30 ML LIQUID UDC PO ONE; -NICOTINE POLACRILEX 4 MG GUM-PK OF TEN BC PRN; -ONDANSETRON 4 MG/2 ML VIAL IV ONE; -ONDANSETRON 4 MG/2 ML VIAL ONE; -SWABABLE VALVE TRANSFER SET EA MC ONE
[2023-01-22] MEDS ORDERED: LORAZEPAM 2 MG/1 ML VIAL IV ONE ×3 (13:15→14:00)
[2023-01-22] MEDS ORDERED: IV NORMAL SALINE 1000 ML BAG IV ONE ×2 (13:15→13:45)
[2023-01-22] MEDS ORDERED: LORAZEPAM 2 MG/1 ML VIAL ONE (13:22)
[2023-01-22] MEDS ORDERED: DICYCLOMINE HCL LIQ 10 MG/5 ML UDC ONE (13:23)
[2023-01-22 13:24] LABS: BASOPHILS # (AUTO) 0.1 K/UL (0.0-0.2); BASOPHILS % (AUTO) 0.8 % (0.0-2.0); EOSINOPHILS # (AUTO) 0.1 K/uL (0.0-0.7); EOSINOPHILS % (AUTO) 0.6 % (0.0-7.0); HEMATOCRIT 37.6 % (31.2-41.9); HEMOGLOBIN 12.4 g/dL (10.9-14.3); LYMPHOCYTES # (AUTO) 2.9 K/uL (0.8-4.8); LYMPHOCYTES % (AUTO) 34.2 % (20.5-51.5); MEAN CORPUSCULAR HGB CONC 33 g/dL (32.3-35.6); MEAN CORPUSCULAR VOLUME 84.7 fL (75.5-95.3); MONOCYTES # (AUTO) 0.6 K/uL (0.1-1.30); MONOCYTES % (AUTO) 7.2 % (0.0-11.0); NEUTROPHILS # (AUTO) 4.8 K/uL (1.8-8.9); NEUTROPHILS % (AUTO) 57.2 % (38.5-71.5); PLATELET COUNT (AUTO) 259 K/uL (179-408); RED BLOOD CELL COUNT(AUTO) 4.44 MIL/uL (3.63-4.92); RED CELL DISTRIBUTION WIDTH 14.8 % (12.3-17.7); WHITE BLOOD COUNT (AUTO) 8.4 K/uL (3.8-11.8)
[2023-01-22 13:36] LABS: ALBUMIN 3.8 g/dL (3.4-5.0); BILIRUBIN,DIRECT 0.1 mg/dL (0.0-0.2); BILIRUBIN,TOTAL 0.2 mg/dL (0.2-1.0); CREATININE 0.8 mg/dL (0.6-1.3); POTASSIUM 4.2 mmol/L (3.5-5.1); TOTAL PROTEIN, SERUM 7.5 g/dL (6.4-8.2)
[2023-01-22] MEDS: DICYCLOMINE HCL 20 MG/2 ML AMPUL IM SCH ×4 (13:37→14:45)
[2023-01-22 13:41] LABS: DIFFERENTIAL COMMENT 1
[2023-01-22] MEDS ORDERED: KETOROLAC TROMETHAMINE 30 MG INJ IVP ONE (13:45)
[2023-01-22] MEDS ORDERED: ONDANSETRON 4 MG/2 ML VIAL ONE ×2 (13:49→13:57)
[2023-01-22] MEDS ORDERED: KETOROLAC TROMETHAMINE 30 MG INJ ONE (13:49)
[2023-01-22] MEDS ORDERED: ONDANSETRON 4 MG/2 ML VIAL IV ONE (14:00)
[2023-01-22] MEDS ORDERED: diphenhydrAMINE 50 MG/1 ML VIAL ONE (14:25)
[2023-01-22] MEDS ORDERED: diphenhydrAMINE 50 MG/1 ML VIAL IV ONE (14:30)
[2023-01-22] MEDS ORDERED: DIAZEPAM 10 MG/2 ML DISP.SYRIN ONE (15:11)
[2023-01-22] MEDS ORDERED: DIAZEPAM 10 MG/2 ML DISP.SYRIN IV ONE (15:15)
[2023-01-22 15:40] VITALS: BP 55/22; TEMP 98.2; O2SAT 100
== END 2023-01-22 15:45 | disposition home or self-care (01) ==
LOC: ER 12:29
DX: G43.909 Migraine, unspecified, not intractable, without status migrainosus (principal); F41.8 Other specified anxiety disorders; F17.210 Nicotine dependence, cigarettes, uncomplicated; R07.89 Other chest pain; Z88.1 Allergy status to other antibiotic agents; Z91.018 Allergy to other foods; Z79.899 Other long term (current) drug therapy; Z79.1 Long term (current) use of non-steroidal anti-inflammatories (NSAID)
CPT/HCPCS: 99285; 96374; 96375; 71045; 96361; 80076; 80048; 83690; 85025; 36415; 93005; 96376; 96372; J3360; J0500; J1200; J1885; J2060; J2405 ×2; J7040; A4663

== ENCOUNTER 2023-02-15 17:09 | Emergency (ER) | payer OTHER ==
[~2023-02-15] VITALS: Ht 162.6 cm; Wt 51.7 kg
[2023-02-15] MEDS ORDERED: ONDANSETRON ODT 4 MG TAB.RAPDIS SL ONE (18:30)
[2023-02-15] MEDS ORDERED: LORAZEPAM 0.5 MG TABLET PO ONE (18:30)
[2023-02-15] MEDS ORDERED: KETOROLAC TROMETHAMINE 30 MG INJ IM ONE (18:30)
[2023-02-15] MEDS ORDERED: ONDANSETRON ODT 4 MG TAB.RAPDIS ONE (18:37)
[2023-02-15] MEDS ORDERED: KETOROLAC TROMETHAMINE 30 MG INJ ONE (18:37)
[2023-02-15] MEDS ORDERED: LORAZEPAM 0.5 MG TABLET ONE (18:38)
[2023-02-15 19:07] VITALS: BP 101/65; O2SAT 99
== END 2023-02-15 19:08 | disposition home or self-care (01) ==
LOC: ER 17:10
DX: R10.84 Generalized abdominal pain (principal); F41.8 Other specified anxiety disorders; G43.909 Migraine, unspecified, not intractable, without status migrainosus; F17.210 Nicotine dependence, cigarettes, uncomplicated; Z88.1 Allergy status to other antibiotic agents; Z88.8 Allergy status to other drugs, medicaments and biological substances; Z91.018 Allergy to other foods; Z79.899 Other long term (current) drug therapy; Z79.2 Long term (current) use of antibiotics
CPT/HCPCS: 99283; 96372; J1885; A4663; Q0162

== ENCOUNTER 2023-02-17 13:36 | Emergency (ER) | payer OTHER | END 2023-02-17 13:40 | disposition left against medical advice (07) | LOC: ER 13:36 | DX: Z53.21 Procedure and treatment not carried out due to patient leaving prior to being seen by health care provider (principal) ==

== ENCOUNTER 2023-04-08 11:22 | Emergency (ER) | payer OTHER ==
[~2023-04-08] VITALS: Ht 162.6 cm; Wt 51.7 kg
[2023-04-08] MEDS ORDERED: diphenhydrAMINE 50 MG/1 ML VIAL ONE (11:36)
[2023-04-08] MEDS ORDERED: diphenhydrAMINE 50 MG/1 ML VIAL IM ONE (11:45)
[2023-04-08] MEDS ORDERED: LORAZEPAM 1 MG TABLET ONE (12:56)
[2023-04-08] MEDS ORDERED: LORAZEPAM 0.5 MG TABLET PO ONE (13:00)
[2023-04-08 14:01] VITALS: BP 133/75; TEMP 98.1; O2SAT 97
[2023-04-09] MEDS ORDERED: SERT100T PO (13:15)
[2023-04-09] MEDS ORDERED: HYDR25CA PO (13:15)
== END 2023-04-08 14:02 | disposition home or self-care (01) ==
LOC: ER 11:25
DX: F41.9 Anxiety disorder, unspecified (principal); G43.909 Migraine, unspecified, not intractable, without status migrainosus; F17.210 Nicotine dependence, cigarettes, uncomplicated; Z88.1 Allergy status to other antibiotic agents; Z88.8 Allergy status to other drugs, medicaments and biological substances; Z91.018 Allergy to other foods; Z79.1 Long term (current) use of non-steroidal anti-inflammatories (NSAID); Z79.2 Long term (current) use of antibiotics; Z79.899 Other long term (current) drug therapy
CPT/HCPCS: 99283; 96372; J1200; A4606; A4663

== ENCOUNTER 2023-04-09 12:14 | Emergency (ER) | payer OTHER ==
[~2023-04-09] VITALS: Ht 162.6 cm; Wt 52.2 kg
[2023-04-09] MEDS ORDERED: LORAZEPAM 0.5 MG TABLET PO ONE (12:30)
[2023-04-09] MEDS ORDERED: LORAZEPAM 1 MG TABLET ONE (12:33)
[2023-04-09] MEDS ORDERED: diphenhydrAMINE 50 MG/1 ML VIAL ONE (13:08)
[2023-04-09] MEDS ORDERED: diphenhydrAMINE 50 MG/1 ML VIAL IM ONE (13:15)
[2023-04-09] MEDS ORDERED: SERT100T PO (13:15)
[2023-04-09] MEDS ORDERED: HYDR25CA PO (13:15)
[2023-04-09 13:20] VITALS: BP 123/57; O2SAT 99
== END 2023-04-09 13:20 | disposition home or self-care (01) ==
LOC: ER 12:15
DX: F41.9 Anxiety disorder, unspecified (principal); F17.210 Nicotine dependence, cigarettes, uncomplicated; Z88.1 Allergy status to other antibiotic agents; Z88.8 Allergy status to other drugs, medicaments and biological substances; Z91.018 Allergy to other foods; Z79.1 Long term (current) use of non-steroidal anti-inflammatories (NSAID); Z79.2 Long term (current) use of antibiotics; Z79.899 Other long term (current) drug therapy
CPT/HCPCS: 99283; 96372; J1200; A4606; A4663